=== PATIENT | male | born 1980 | race Caucasian/White ===

== ENCOUNTER 2022-07-08 16:38 | Emergency (ER) | payer BC ==
[2022-07-08] MEDS ORDERED: Ketorolac 30 MG/ML SDV IM ONE (16:49)
[2022-07-08] MEDS ORDERED: Dexamethasone 4 MG/ML SDV IM ONE (16:49)
[2022-07-08] MEDS ORDERED: Clindamycin HCl 150 MG Cap PO ONE (16:50)
[2022-07-08 17:39] VITALS: BP 137/75; PULSE 88
== END 2022-07-08 17:17 | disposition home or self-care (01) ==
LOC: CC.ED 16:38
DX: K04.7 Periapical abscess without sinus (principal); Z79.899 Other long term (current) drug therapy
CPT/HCPCS: 96372; 99282; A9270-GY; J1100; J1885

== ENCOUNTER 2025-04-09 21:57 | Emergency (ER) | payer BC ==
[2025-04-09 22:18] LABS: BASOPHILS ABSOLUTE AUTO 0.02 10^3/uL (0.00-0.50); BASOPHILS PERCENT AUTO 0.2 % (0-1); EOSINOPHILS ABSOLUTE AUTO 0.01 10^3/uL (0.00-1.50); EOSINOPHILS PERCENT AUTO 0.1 % (0-6); IMMATURE GRAN ABSOLUTE AUTO 0.03 10^3/uL (0.00-0.49); IMMATURE GRAN PERCENT AUTO 0.3 % (0.0-4.9); LYMPHOCYTES ABSOLUTE AUTO 2.43 10^3/uL (0.60-5.00); LYMPHOCYTES PERCENT AUTO 23.0 % (24-44); MONOCYTES ABSOLUTE AUTO 0.61 10^3/uL (0.00-1.50); MONOCYTES PERCENT AUTO 5.8 % (0-10); NEUTROPHILS ABSOLUTE AUTO 7.48 x10^3/uL (1.80-8.00); NEUTROPHILS PERCENT AUTO 70.6 % (41-71); PLATELET COUNT,PLT 231 10^3/uL (150-400); RED BLOOD CELL COUNT 5.04 x10^6/uL (4.50-6.00); WHITE BLOOD CELL COUNT,WBC 10.6 10^3/uL (4.0-11.0)
[2025-04-09 22:38] LABS: ALANINE AMINOTRANSFERASE,ALT 66.0 U/L (12-78); ASPARTATE AMNIOTRANSFERASE,AST 29.0 U/L (15-37); BILIRUBIN TOTAL 0.5 mg/dL (0.0-1.0); BLOOD UREA NITROGEN,BUN 16.0 mg/dL (7-18); CARBON DIOXIDE,CO2 24.0 mmol/L (21-32); CHLORIDE,CL 100.0 mEq/L (98-106); CREATININE 1.2 mg/dL (0.7-1.3); EST CRCL DRUG DOSING (CG) 81.96 mL/min; GLUCOSE RANDOM 201.0 mg/dL (75-99); POTASSIUM,K 3.6 mEq/L (3.5-5.0); PRO B-TYPE NATRIUR PEPT,BNPPRO 47.0 pg/mL (0-1000); PROTEIN TOTAL,TP 7.6 g/dL (6.4-8.2); SODIUM,NA 138.0 mEq/L (136-145)
[2025-04-09 22:39] LABS: ESTIMATED GFR 77.0 mL/min (>=60)
[2025-04-09 23:57] VITALS: BP 118/55; PULSE 86
== END 2025-04-10 | disposition home or self-care (01) ==
LOC: CC.ED 21:57
DX: J40 Bronchitis, not specified as acute or chronic (principal); I10 Essential (primary) hypertension; Z79.899 Other long term (current) drug therapy; Z79.85 Long-term (current) use of injectable non-insulin antidiabetic drugs
CPT/HCPCS: 36415; 71046; 80053; 83880; 85025; 85379; 86140; 99285; A9270

== ENCOUNTER 2025-04-12 13:07 | Observation (INO) | payer BC ==
[2025-04-12] MEDS: Iopamidol 755 Mg/ML 100 ML Bottle IVPUSH ONE (13:51)
[2025-04-12 14:07] LABS: PRO B-TYPE NATRIUR PEPT,BNPPRO 27.0 pg/mL (0-1000)
[2025-04-12] MEDS ORDERED: Albuterol 0.083% 2.5 MG/3 ML Neb Soln NEB PRN (14:08)
[2025-04-12] MEDS ORDERED: Ondansetron 4 MG Tab.DIS PO PRN (14:08)
[2025-04-12] MEDS ORDERED: Ondansetron 4 MG/2 ML SDV IV PRN (14:08)
[2025-04-12 14:59] LABS: O2 DELIVERY DEVICE ROOM AIR
[2025-04-12 15:33] LABS: BASE EXCESS ARTERIAL 0.9 (-2.0-3.0); BICARBONATE,ARTERIAL 23.1 mm/L (22.0-26.0); O2 SATURATION ARTERIAL 93 % (95-98); PCO2 ARTERIAL 29 mm/Hg0 (35-45); PH,ARTERIAL 7.51 (7.35-7.45); PO2 ARTERIAL 58 mm/Hg (80-100)
[2025-04-12] MEDS: Lactobacillus Rhamnosus GG (Probiotic) Cap PO SCH (19:28)
[2025-04-12] MEDS: methylPREDNISolone Sodium Succinate 40 MG/1 ML SDV IVPUSH SCH (19:28)
[2025-04-13 08:04] LABS: BASOPHILS ABSOLUTE AUTO 0.01 10^3/uL (0.00-0.50); BASOPHILS PERCENT AUTO 0.1 % (0-1); EOSINOPHILS ABSOLUTE AUTO 0.00 10^3/uL (0.00-1.50); EOSINOPHILS PERCENT AUTO 0.0 % (0-6); IMMATURE GRAN ABSOLUTE AUTO 0.06 10^3/uL (0.00-0.49); IMMATURE GRAN PERCENT AUTO 0.7 % (0.0-4.9); LYMPHOCYTES ABSOLUTE AUTO 1.22 10^3/uL (0.60-5.00); LYMPHOCYTES PERCENT AUTO 13.8 % (24-44); MONOCYTES ABSOLUTE AUTO 0.40 10^3/uL (0.00-1.50); MONOCYTES PERCENT AUTO 4.5 % (0-10); NEUTROPHILS ABSOLUTE AUTO 7.16 x10^3/uL (1.80-8.00); NEUTROPHILS PERCENT AUTO 80.9 % (41-71); PLATELET COUNT,PLT 249 10^3/uL (150-400); RED BLOOD CELL COUNT 4.56 x10^6/uL (4.50-6.00); WHITE BLOOD CELL COUNT,WBC 8.9 10^3/uL (4.0-11.0)
[2025-04-13 08:13] LABS: ALANINE AMINOTRANSFERASE,ALT 56.0 U/L (12-78); ASPARTATE AMNIOTRANSFERASE,AST 34.0 U/L (15-37); BILIRUBIN TOTAL 0.5 mg/dL (0.0-1.0); BLOOD UREA NITROGEN,BUN 13.0 mg/dL (7-18); CARBON DIOXIDE,CO2 24.0 mmol/L (21-32); CHLORIDE,CL 103.0 mEq/L (98-106); CREATININE 1.0 mg/dL (0.7-1.3); EST CRCL DRUG DOSING (CG) 98.35 mL/min; GLUCOSE RANDOM 195.0 mg/dL (75-99); POTASSIUM,K 4.2 mEq/L (3.5-5.0); PROTEIN TOTAL,TP 7.1 g/dL (6.4-8.2); SODIUM,NA 136.0 mEq/L (136-145)
[2025-04-13 08:30] LABS: ESTIMATED GFR 96.0 mL/min (>=60)
[2025-04-13] MEDS: Fish Oil/Omega-3 Fatty Acids 1 Gm Cap PO SCH (11:58)
[2025-04-14 07:36] LABS: BASOPHILS ABSOLUTE AUTO 0.01 10^3/uL (0.00-0.50); BASOPHILS PERCENT AUTO 0.1 % (0-1); EOSINOPHILS ABSOLUTE AUTO 0.01 10^3/uL (0.00-1.50); EOSINOPHILS PERCENT AUTO 0.1 % (0-6); IMMATURE GRAN ABSOLUTE AUTO 0.15 10^3/uL (0.00-0.49); IMMATURE GRAN PERCENT AUTO 1.1 % (0.0-4.9); LYMPHOCYTES ABSOLUTE AUTO 2.06 10^3/uL (0.60-5.00); LYMPHOCYTES PERCENT AUTO 14.6 % (24-44); MONOCYTES ABSOLUTE AUTO 0.56 10^3/uL (0.00-1.50); MONOCYTES PERCENT AUTO 4.0 % (0-10); NEUTROPHILS ABSOLUTE AUTO 11.33 x10^3/uL (1.80-8.00); NEUTROPHILS PERCENT AUTO 80.1 % (41-71); PLATELET COUNT,PLT 254 10^3/uL (150-400); RED BLOOD CELL COUNT 4.55 x10^6/uL (4.50-6.00); WHITE BLOOD CELL COUNT,WBC 14.1 10^3/uL (4.0-11.0)
[2025-04-14] MEDS: Cholecalciferol (Vitamin D3) 25 MCG Tab PO SCH (07:44)
[2025-04-14 07:45] VITALS: BP 131/68
[2025-04-14 07:45] LABS: BLOOD UREA NITROGEN,BUN 15.0 mg/dL (7-18); CARBON DIOXIDE,CO2 24.0 mmol/L (21-32); CHLORIDE,CL 104.0 mEq/L (98-106); CREATININE 1.0 mg/dL (0.7-1.3); EST CRCL DRUG DOSING (CG) 98.35 mL/min; GLUCOSE RANDOM 248.0 mg/dL (75-99); POTASSIUM,K 4.4 mEq/L (3.5-5.0); SODIUM,NA 135.0 mEq/L (136-145)
[2025-04-14 07:48] LABS: ESTIMATED GFR 96.0 mL/min (>=60)
[2025-04-14 08:42] VITALS: PULSE 69
== END 2025-04-14 11:20 | disposition home or self-care (01) ==
LOC: UNDOADMOB 13:07 → CC.MS 13:07
PROVIDERS: ADMIT Nurse Practitioner; ATTEND Nurse Practitioner
DX: J18.9 Pneumonia, unspecified organism (principal); I10 Essential (primary) hypertension; Z79.899 Other long term (current) drug therapy; Z20.822 Contact with and (suspected) exposure to COVID-19
CPT/HCPCS: 36415; 36600; 71275; 80048; 80053; 82803; 82947; 83605; 83735; 83880; 84484; 85025; 87040; 87070; 87205; 93005; 94640; 99223; 99232; 99238; A9270; J0456; J0696; J1650; J2919; J7030; J7050; J7620; Q0144; Q9967